=== PATIENT | female | born 1980 | race Caucasian/White ===

== ENCOUNTER 2017-08-02 12:54 | Emergency (ER) | payer OTHER ==
[~2017-08-02] VITALS: Ht 152.4 cm; Wt 67.3 kg
[~2017-08-02 12:54] MED LIST: AUGMENTIN875 MG PO; Colace PO; ENDOCET 5-3251 EACH PO; EXCEDRIN EXTRA1 EACH PO; Feosol PO; Flexeril PO; INDOCIN25 MG PO; LEVOFLOXACIN250 MG PO; LIDOCAINE20 MG/1 M5 PO; METHADONE HCL40 MG PO; METHADONE5 MG PO; Motrin PO; NITROSTAT0.4 MG SL; NOHOMEMEDS; OXYBUTYNIN CHLOR5 M1 PO; PREDNISONE20 MG PO; SKELAXIN800 MG PO; TOPAMAX25 MG PO; ULTRAM50 MG PO; URIBEL CAPSULE1 EACH PO
[2017-08-02 13:44] LABS: HEMATOCRIT 41.8 % (36.0-46.0); MCH 29.5 PG (29.0-34.0); MCHC 33.3 G/DL (30.0-36.0); MCV 88.7 FL (83-99); MEAN PLAT.VOLUME 9.8 uM^3 (9.5-12.4); PLATELET COUNT 272 K/uL (156-360); RBC DIS.WIDTH-SD 42.5 % (39-53); RED BLOOD COUNT 4.71 M/uL (3.80-5.20); WHITE BLOOD COUNT 7.4 K/uL (4.1-10.2)
[2017-08-02 13:51] LABS: CHLORIDE 101 mEq/L (99-109); POTASSIUM 4.3 mEq/L (3.7-5.4); SODIUM 137 mEq/L (136-147)
[2017-08-02 13:53] LABS: GLUCOSE 81 mg/dL (70-99)
[2017-08-02 13:55] LABS: ANION GAP 9 MEQ/L (2-14)
[2017-08-02 13:57] LABS: GFR ESTIMATE (CALCULATED) > 59 mL/min/
[2017-08-02 13:58] LABS: UREA NITROGEN (BUN) 11 mg/dL (9-23)
[2017-08-02 14:03] LABS: TROP-I INTERPRETATION NEGATIVE; TROPONIN-I < 0.01 ng/mL (0.0-0.30)
[2017-08-02 14:43] LABS: D-DIMER ELISA < 150.00 ng/mLDDU (<230)
[2017-08-02 15:09] VITALS: BP 106/79
[2017-08-02 15:26] LABS: ADD MIUA? YES; BILIRUBIN NEGATIVE; BLOOD NEGATIVE; COLOR YELLOW ((YELLOW)); GLUCOSE (STRIP) NEGATIVE; KETONES NEGATIVE; LEUKOCYTES TRACE; NITRITE NEGATIVE; PROTEIN (STRIP) NEGATIVE; SPECIFIC GRAVITY 1.018 (1.000-1.030); UROBILINOGEN 0.2 MG/DL (0.2-1.0)
[2017-08-02 15:42] LABS: BACTERIA 2+ /HPF; EPITHELIAL CELLS 2+ /HPF; GRANULAR CASTS 0-5 /LPF; MUCUS TRACE /LPF; RED BLOOD CELLS 0-5 /HPF (0-5); UCUL ADDED? YES; WHITE BLOOD CELLS 0-5 /HPF (0-5)
== END 2017-08-02 17:16 | disposition left against medical advice (07) ==
LOC: EME 12:54
PROVIDERS: Physician Assistant
DX: R07.9 Chest pain, unspecified (principal); K21.9 Gastro-esophageal reflux disease without esophagitis; J45.909 Unspecified asthma, uncomplicated; F90.9 Attention-deficit hyperactivity disorder, unspecified type; F41.9 Anxiety disorder, unspecified; F32.9 Major depressive disorder, single episode, unspecified; G43.909 Migraine, unspecified, not intractable, without status migrainosus; F17.210 Nicotine dependence, cigarettes, uncomplicated
CPT/HCPCS: 71020; 80048; 81003; 84484; 85027; 85379; 87077; 87086; 87186; 93005; 99281; 99284

== ENCOUNTER 2017-09-17 02:37 | Emergency (ER) | payer OTHER ==
[~2017-09-17] VITALS: Ht 152.4 cm; Wt 67.9 kg
[2017-09-17] MEDS ORDERED: MOTRIN600 MG PO (04:25)
[2017-09-17] MEDS ORDERED: CLEOCIN300 MG PO (04:25)
[2017-09-17] MEDS ORDERED: ROXICODONE5 MG PO (04:25)
[2017-09-17 04:51] VITALS: BP 139/95
== END 2017-09-17 04:52 | disposition home or self-care (01) ==
LOC: EME 02:37 → EXP 02:37
DX: K08.89 Other specified disorders of teeth and supporting structures (principal); F17.200 Nicotine dependence, unspecified, uncomplicated
CPT/HCPCS: 99281; 99283

== ENCOUNTER 2018-02-14 08:48 | Emergency (ER) | payer OTHER ==
[~2018-02-14] VITALS: Ht 152.4 cm; Wt 68.3 kg
[~2018-02-14 08:48] MED LIST changes: +CLEOCIN300 MG PO; +MOTRIN600 MG PO; +ROXICODONE5 MG PO
[2018-02-14] MEDS ORDERED: PERCOCET 5/31 TABLET PO (10:28)
[2018-02-14] MEDS ORDERED: AMOXICILLIN500 MG PO (10:28)
[2018-02-14 10:32] VITALS: BP 132/98
== END 2018-02-14 10:34 | disposition home or self-care (01) ==
LOC: EME 08:48
DX: K04.7 Periapical abscess without sinus (principal); F17.200 Nicotine dependence, unspecified, uncomplicated; K21.9 Gastro-esophageal reflux disease without esophagitis; J45.909 Unspecified asthma, uncomplicated; F90.9 Attention-deficit hyperactivity disorder, unspecified type; F41.9 Anxiety disorder, unspecified; F32.9 Major depressive disorder, single episode, unspecified; G43.909 Migraine, unspecified, not intractable, without status migrainosus; Z96.0 Presence of urogenital implants
CPT/HCPCS: 99281; 99284

== ENCOUNTER 2018-04-02 01:50 | Emergency (ER) | payer SELFPAY ==
[~2018-04-02] VITALS: Ht 152.4 cm; Wt 70.7 kg
[~2018-04-02 01:50] MED LIST changes: +AMOXICILLIN500 MG PO; +PERCOCET 5/31 TABLET PO
[2018-04-02 02:26] LABS: HEMATOCRIT 36.7 % (36.0-46.0); HEMOGLOBIN 13.1 G/DL (11.9-15.5); MCH 31.2 PG (29.0-34.0); MCHC 35.7 G/DL (30.0-36.0); MCV 87.4 FL (83-99); PLATELET COUNT 281 K/uL (156-360); RBC DIS.WIDTH-CV 13.2 % (11.8-14.6); RBC DIS.WIDTH-SD 42.1 % (39-53)
[2018-04-02 03:32] VITALS: BP 109/86
== END 2018-04-02 03:33 | disposition home or self-care (01) ==
LOC: EME 01:50
DX: N93.8 Other specified abnormal uterine and vaginal bleeding (principal); F41.9 Anxiety disorder, unspecified; F32.9 Major depressive disorder, single episode, unspecified; F90.9 Attention-deficit hyperactivity disorder, unspecified type; K21.9 Gastro-esophageal reflux disease without esophagitis; F17.200 Nicotine dependence, unspecified, uncomplicated; J45.909 Unspecified asthma, uncomplicated
CPT/HCPCS: 81003; 84702; 85027; 99281; 99284

== ENCOUNTER 2018-06-02 12:15 | Emergency (ER) | payer SELFPAY ==
[~2018-06-02] VITALS: Ht 152.4 cm; Wt 70.6 kg
[2018-06-02 13:25] LABS: APPEARANCE SL.HAZY ((CLEAR)); BILIRUBIN NEGATIVE; BLOOD NEGATIVE; COLOR YELLOW ((YELLOW)); GLUCOSE (STRIP) NEGATIVE; KETONES NEGATIVE; LEUKOCYTES LARGE; NITRITE NEGATIVE; PROTEIN (STRIP) 100; SPECIFIC GRAVITY 1.016 (1.000-1.030); UROBILINOGEN 0.2 MG/DL (0.2-1.0)
[2018-06-02 13:28] LABS: HEMATOCRIT 37.9 % (36.0-46.0); HEMOGLOBIN 12.9 G/DL (11.9-15.5); MCH 29.3 PG (29.0-34.0); MCV 85.9 FL (83-99); PLATELET COUNT 416 K/uL (156-360); RBC DIS.WIDTH-CV 12.4 % (11.8-14.6); RBC DIS.WIDTH-SD 39.3 % (39-53); RED BLOOD COUNT 4.41 M/uL (3.80-5.20); WHITE BLOOD COUNT 16.6 K/uL (4.1-10.2)
[2018-06-02 13:29] LABS: BACTERIA RARE /HPF; EPITHELIAL CELLS 1+ /HPF; HYALINE CASTS 0-5 /LPF; MUCUS TRACE /LPF; WHITE BLOOD CELLS TNTC /HPF (0-5)
[2018-06-02 13:38] LABS: ALBUMIN 3.9 g/dL (3.2-4.8)
[2018-06-02 13:39] LABS: CHLORIDE 102 mEq/L (99-109); POTASSIUM 4.2 mEq/L (3.7-5.4); SODIUM 135 mEq/L (136-147)
[2018-06-02 13:41] LABS: GLUCOSE 100 mg/dL (70-99); TOTAL PROTEIN 7.5 g/dL (6.4-8.3)
[2018-06-02 13:43] LABS: TOTAL BILIRUBIN 0.4 mg/dL (0.0-1.0)
[2018-06-02 13:44] LABS: ALKALINE PHOSPHATASE 75 IU/L (3-129)
[2018-06-02 13:45] LABS: CREATININE 0.8 mg/dL (0.6-1.3); GFR ESTIMATE (CALCULATED) > 59 mL/min/
[2018-06-02 13:46] LABS: AST (GOT) 16 IU/L (2-34); UREA NITROGEN (BUN) 12 mg/dL (9-23)
[2018-06-02 13:47] LABS: ALT (GPT) 18 IU/L (3-49)
[2018-06-02 13:48] LABS: LIPASE 43 U/L (1.0-51.0)
[2018-06-02 13:53] LABS: QUANTITATIVE HCG < 4.0 MIU/ML
[2018-06-02 14:19] LABS: SOURCE SWAB
[2018-06-02] MEDS ORDERED: BACTRIM,SEPT1 TABLET PO (15:37)
[2018-06-02] MEDS ORDERED: NORCO 5/3251 TABLET PO (15:37)
[2018-06-02 15:53] VITALS: BP 126/89
== END 2018-06-02 15:57 | disposition home or self-care (01) ==
LOC: EME 12:15
PROVIDERS: Physician Assistant
DX: N12 Tubulo-interstitial nephritis, not specified as acute or chronic (principal); A59.01 Trichomonal vulvovaginitis; J45.909 Unspecified asthma, uncomplicated; F32.9 Major depressive disorder, single episode, unspecified; K21.9 Gastro-esophageal reflux disease without esophagitis; F41.9 Anxiety disorder, unspecified; F90.9 Attention-deficit hyperactivity disorder, unspecified type; F17.200 Nicotine dependence, unspecified, uncomplicated
CPT/HCPCS: 74176; 80053; 81003; 83690; 84702; 85027; 87077; 87086; 87186; 87210; 87491; 87591; 99281; 99285; J0696; J1885; J2270